=== PATIENT | female | born 1990 | race African-American/Black ===

== ENCOUNTER 2025-03-09 22:54 | Emergency (ER) | payer OTHER ==
[~2025-03-09] VITALS: Ht 152.4 cm; Wt 86.2 kg
[2025-03-09 23:25] LABS: PLATELET COUNT (AUTO) 301 K/uL (179-408); RED BLOOD CELL COUNT(AUTO) 4.73 MIL/uL (3.63-4.92); RED CELL DISTRIBUTION WIDTH 13.8 % (12.3-17.7); WHITE BLOOD COUNT (AUTO) 10.8 K/uL (3.8-11.8)
[2025-03-09 23:35] LABS: CREATININE 0.8 mg/dL (0.6-1.3); SODIUM SERUM 148 mmol/L (136-145); UREA NITROGEN, BLOOD 9 mg/dL (7-18)
[2025-03-09 23:40] LABS: ASPARTATE AMINOTRANSFERASE 46 U/L (15-37); TOTAL PROTEIN, SERUM 7.8 g/dL (6.4-8.2)
[2025-03-10] MEDS ORDERED: FUROSEMIDE 20 MG TABLET ONE (02:31)
[2025-03-10] MEDS: FUROSEMIDE 20 MG TABLET PO ONE (02:43)
[2025-03-10] MEDS: SPIRONOLACTONE 50 MG TABLET PO ONE (02:43)
[2025-03-10 02:45] VITALS: BP 155/109
[2025-03-10 03:13] VITALS: BP 149/98; O2SAT 96
== END 2025-03-10 03:11 | disposition home or self-care (01) ==
LOC: ER 22:56
DX: R07.89 Other chest pain (principal); R06.2 Wheezing; Z88.7 Allergy status to serum and vaccine; Z90.49 Acquired absence of other specified parts of digestive tract; Z79.899 Other long term (current) drug therapy
CPT/HCPCS: 36415; 71045; 84484; 85025; 85730; A4606; A4663